=== PATIENT | male | born 1955 | race Caucasian/White ===

== ENCOUNTER 2017-05-16 07:13 | Emergency (ER) | payer BC ==
[2017-05-16 07:31] VITALS: BP 121/73
--- NOTE | 2017-05-16 08:09 | UC ---
Throat Pain/Nasal Herbie HPI - HPI Summary HPI Summary: 61 Y/O male presents with sore throat x 4 days. States fever off and on over several days. Has been exposed to strep throat by granddaughter. Denies nausea, vomiting, or difficulty swallowing. Has been using OTC throat spray, mucinex, and advil with partial relief of symptoms. Past medical history negative for cardiac, endocrine or respiratory illnesses. Medications reviewed at this visit. BP very slightly elevated without history or HTN. - History of Current Complaint Chief Complaint: UCRespiratory Stated Complaint: URI Time Seen by Provider: 05/16/17 07:58 Hx Obtained From: Patient Onset/Duration: Gradual Onset Severity: Mild Pain Intensity: 3 Pain Scale Used: 0-10 Numeric Cough: Productive Associated Signs & Symptoms: Positive: Fever - Allergies/Home Medications Allergies/Adverse Reactions: Allergies Allergy/AdvReac Type Severity Reaction Status Date / Time Penicillins Allergy Unknown Verified 05/16/17 07:24 Reaction Details Home Medications: Home Medications Pseudoephedrine-Guaifenesin [Mucinex D] 2 tab PO Q8HR PRN 05/16/17 [History Confirmed 05/16/17] PMH/Surg Hx/FS Hx/Imm Hx Previously Healthy: Yes - Surgical History Surgical History: Yes Surgery Procedure, Year, and Place: HERNIA REPAIR - Social History Alcohol Use: Weekly Alcohol Amount: 3/WEEK Substance Use Type: None Smoking Status (MU): Never Smoked Tobacco - Immunization History Most Recent Tetanus Shot: 2013 Review of Systems Constitutional: Fever Skin: Negative Eyes: Negative ENT: Sore Throat, Nasal Discharge Respiratory: Cough Cardiovascular: Negative Gastrointestinal: Negative Genitourinary: Negative Motor: Negative Neurovascular: Negative Musculoskeletal: Negative Neurological: Negative Psychological: Negative Is Patient Immunocompromised?: No All Other Systems Reviewed And Are Negative: Yes Physical Exam Triage Information Reviewed: Yes Appearance: Well-Appearing Vital Signs: Initial Vital Signs Temp 99.5 F 05/16/17 07:26 Pulse 92 05/16/17 07:26 Resp 18 05/16/17 07:26 BP 121/73 05/16/17 07:26 Pulse Ox 99 05/16/17 07:26 Vital Signs Reviewed: Yes Eye Exam: Normal Eyes: Positive: Conjunctiva Clear ENT Exam: Normal ENT: Positive: Pharyngeal erythema, Tonsillar exudate Dental Exam: Normal Neck exam: Normal Respiratory: Positive: Chest non-tender, Lungs clear, Normal breath sounds, No respiratory distress Cardiovascular Exam: Normal Cardiovascular: Positive: RRR Abdominal Exam: Normal Bowel Sounds: Positive: Present Musculoskeletal Exam: Normal Neurological Exam: Normal Neurological: Positive: Alert Psychological Exam: Normal Skin Exam: Normal Throat Pain/Nasal Course/Dx - Differential Dx/Diagnosis Differential Diagnosis/HQI/PQRI: Pharyngitis, Tonsillitis Provider Diagnoses: Pharyngitis Discharge - Discharge Plan Condition: Stable Disposition: HOME Referrals: No Primary Care Phys,NOPCP [Primary Care Provider] -
== END 2017-05-16 08:25 | disposition home or self-care (01) ==
LOC: UCEAST 07:13
DX: J02.9 Acute pharyngitis, unspecified (principal); R50.9 Fever, unspecified; Z88.0 Allergy status to penicillin
CPT/HCPCS: 87651; 99201; G0463

== ENCOUNTER 2019-02-06 13:34 | Emergency (ER) | payer BC ==
[2019-02-06 13:50] VITALS: BP 125/85
--- NOTE | 2019-02-06 14:03 | UC ---
Abdominal Pain Male HPI - HPI Summary HPI Summary: Woke up in the middle of the night with abdominal pain and vomiting x2. He feels an ache in his abd. denies blood in vomit, diarrhea, dizziness. Son states pt. is being worked up for some spots on his lungs. - History of Current Complaint Chief Complaint: UCAbdominalPain Stated Complaint: ABD PAIN Time Seen by Provider: 02/06/19 13:52 Hx Obtained From: Patient Onset/Duration: Sudden Onset Pain Intensity: 6 Pain Scale Used: 0-10 Numeric Character: Cramping Aggravating Factor(s): Nothing Alleviating Factor(s): Nothing - Allergies/Home Medications Allergies/Adverse Reactions: Allergies Allergy/AdvReac Type Severity Reaction Status Date / Time Penicillins Allergy Unknown Verified 02/06/19 13:50 Reaction Details PMH/Surg Hx/FS Hx/Imm Hx - Additional Past Medical History Additional PMH: lung issues being worked up by pulm Previously Healthy: Yes - Surgical History Surgical History: Yes Surgery Procedure, Year, and Place: HERNIA REPAIR - Social History Alcohol Use: Occasionally Alcohol Amount: 3/WEEK Substance Use Type: None Smoking Status (MU): Never Smoked Tobacco - Immunization History Most Recent Tetanus Shot: 2013 Review of Systems All Other Systems Reviewed And Are Negative: Yes Constitutional: Negative: Fever, Chills, Fatigue Skin: Negative: Bruising Respiratory: Negative: Shortness Of Breath Cardiovascular: Negative: Palpitations, Chest Pain Gastrointestinal: Positive: Abdominal Pain - upper epigastric, Vomiting - x2 Motor: Negative: Weakness Musculoskeletal: Negative: Myalgia Neurological: Negative: Headache, Weakness Physical Exam Triage Information Reviewed: Yes Appearance: Well-Appearing Vital Signs: Initial Vital Signs Temp 98.9 F 02/06/19 13:42 Pulse 130 02/06/19 13:42 Resp 16 02/06/19 13:42 BP 125/85 02/06/19 13:42 Pulse Ox 98 02/06/19 13:42 Vital Signs Reviewed: Yes Respiratory: Positive: Lungs clear, Normal breath sounds, No accessory muscle use Abdomen Description: Positive: Pulsatile Mass - mid abd w/ mild tenderness Bowel Sounds: Positive: Present Neurological: Positive: Alert, Other: - normal speech, normal gait, normal extremity movement Skin: Negative: Rashes Diagnostics - EKG EKG Comparison: Other - NO OTHER EKGS IN SYSTEM Summary of EKG Findings: REVIEWED W/ DR. CROWELL. LVH STRAIN, TACHYCARDIA. PT DOES NOT HAVE A PACER Abd Pain Male Course/Dx - Course Course Of Treatment: Sudden abd pain w/ 2 episodes of vomiting. Has Tachycardia and on exam pulsatile mass. Although he is a very thin man, and abd aorta can typically be felt on this type of body habitus, it is prudent he gets urgent eval at ED for other sources of abd pain and tachycardia. Of note he is being worked up for ' spots on his lungs' per son's report. Pt is stable and is alert and oriented. Sent via ambulance. - Differential Dx/Clinical Impression Differential Diagnosis/HQI/PQRI: Abdominal Aortic Aneurysm, Appendicitis, Diverticulitis, Pancreatitis, Other Provider Diagnosis: Abdominal pain, Pulsatile abdominal mass Discharge ED - Sign-Out/Discharge Documenting (check all that apply): Patient Departure All imaging exams completed and their final reports reviewed: No Studies - Discharge Plan Condition: Stable Disposition: TRANS HIGHER LVL OF CARE FAC Referrals: Peggy Tipton MD [Primary Care Provider] - Additional Instructions: We are sending you via ambulance to a higher level of care. - Billing Disposition and Condition Condition: STABLE Disposition: Trans Higher Lvl of Care Fac
== END 2019-02-06 14:13 | disposition short-term general hospital (02) ==
LOC: UCEAST 13:34
DX: R10.13 Epigastric pain (principal); R19.00 Intra-abdominal and pelvic swelling, mass and lump, unspecified site; Z88.0 Allergy status to penicillin
CPT/HCPCS: 93005; 99213; G0463

== ENCOUNTER 2019-02-06 14:37 | Emergency (ER) | payer BC ==
[2019-02-06] MEDS ORDERED: NS 0.9% 1000 ML** 1,000 ML IV ONE (14:51)
--- NOTE | 2019-02-06 14:51 | ED ---
Abdominal Pain/Male - HPI Summary HPI Summary: Patient is a 63 y/o M presenting to [facility] via EMS from [facility] with complaints of lower abdominal pain and N/V. He states that he awoke with abdominal pain today, 02/06/19 at around 0300. He reports that he subsequently became nauseous and had two episodes of emesis. He denies diarrhea. Patient states that he only had ana xuan and pepto-bismol today. He notes that he is not nauseous at present. Son notes that the patient is being followed at [facility] for "some black spots on his lung". He states that cancer had been ruled out and this is being treated as an infection. Patient had been prescribed antibiotics and is scheduled for follow up at [facility]. On triage, pain is rated 6/10. Nothing is noted to aggravate/alleviate Sx. Pulse 116, BP 182/93, o2 97 on RA in the room. Home medications and allergies are reviewed. - History of Current Complaint Stated Complaint: ABD PAIN Time Seen by Provider: 02/06/19 14:42 Hx Obtained From: Patient Onset/Duration: Lasting Hours, Still Present Timing: Constant, Lasting Hours Severity Currently: Moderate Pain Scale Used: 0-10 Numeric Location: Other - lower abd Aggravating Factor(s): Nothing Alleviating Factor(s): Nothing Associated Signs And Symptoms: Positive: Nausea, Vomiting. Negative: Fever - on vitals, temp is 98 F, Diarrhea - Allergies/Home Medications Allergies/Adverse Reactions: Allergies Allergy/AdvReac Type Severity Reaction Status Date / Time Penicillins Allergy Unknown Verified 02/06/19 13:50 Reaction Details Home Medications: Home Medications Cyanocobalamin TAB* [Vitamin B12 TAB*] 1,000 mcg PO DAILY 02/06/19 [History Confirmed 02/06/19] PMH/Surg Hx/FS Hx/Imm Hx Endocrine/Hematology History: Denies: Hx Diabetes, Hx Thyroid Disease Cardiovascular History: Denies: Hx Hypertension Respiratory History: Denies: Hx Asthma, Hx Chronic Obstructive Pulmonary Disease (COPD) GI History: Denies: Hx Ulcer - Surgical History Surgery Procedure, Year, and Place: HERNIA REPAIR Infectious Disease History: Denies: Hx Hepatitis, Hx Human Immunodeficiency Virus (HIV) - Family History Known Family History: Positive: Other - cancer - Social History Alcohol Use: Occasionally Alcohol Amount: 3/WEEK Substance Use Type: Reports: None Smoking Status (MU): Never Smoked Tobacco Review of Systems Negative: Fever - on vitals, temp is 98 F Positive: Abdominal Pain, Vomiting, Nausea. Negative: Diarrhea All Other Systems Reviewed And Are Negative: Yes Physical Exam - Summary Physical Exam Summary: Appearance: The patient is well-nourished in no acute distress and in no acute pain. Skin: The skin is warm and dry, and skin color reflects adequate perfusion. HEENT: The head is normocephalic and atraumatic. The pupils are equal and reactive. The conjunctivae are clear and without drainage. Nares are patent and without drainage. Mouth reveals moist mucous membranes, and the throat is without erythema and exudate. The external ears are intact. The ear canals are patent and without drainage. The tympanic membranes are intact. Neck: The neck is supple with full range of motion and non-tender. There are no carotid bruits. There is no neck vein distension. Respiratory: Chest is non-tender. Lungs are clear to auscultation and breath sounds are symmetrical and equal. Cardiovascular: Heart is regular rate and rhythm. There is no murmur or rub auscultated. There is no peripheral edema and pulses are symmetrical and equal. Good radial and femoral pulses bilaterally. Abdomen: Tenderness over the palpable aorta mid abdomen. There are normal bowel sounds heard in all four quadrants and there is no organomegaly palpated. Musculoskeletal: There is no back tenderness noted. Extremities are non-tender with full range of motion. There is good capillary refill. There is no peripheral edema or calf tenderness elicited. Neurological: Patient is alert and oriented to person, place and time. The patient has symmetrical motor strength in all four extremities. Cranial nerves are grossly intact. Deep tendon reflexes are symmetrical and equal in all four extremities. Psychiatric: The patient has an appropriate affect and does not exhibit any anxiety or depression. Triage Information Reviewed: Yes Vital Signs Reviewed: Yes Procedures - Sedation Patient Received Moderate/Deep Sedation with Procedure: No Diagnostics - Laboratory Result Diagrams: 02/06/19 15:11 02/06/19 15:11 Lab Statement: Any lab studies that have been ordered have been reviewed, and results considered in the medical decision making process. - CT CHEST/ABD/PEL CTA CT Interpretation Completed By: Radiologist Summary of CT Findings: CTA CHEST IMPRESSION: #. Large LEFT pleural effusion and large LEFT diaphragmatic hernia with proportional. atelectasis most marked at the basilar segments of the LEFT lower lobe. Nonspecific. opacification of the LEFT lower lobe airways which may represent mucus impaction or. potentially tumor. #. Negative for thoracic lymphadenopathy. #. Negative for aneurysm or dissection of the thoracic aorta. #. No evidence for pulmonary embolism. CTA ABD/PEL IMPRESSION: #. Negative for aneurysm or dissection of the abdominal aorta. #. Perforation in the central aspect of the LEFT hemidiaphragm measuring up to 3.3 cm AP. by 3.4 cm transverse with herniation of the majority of the small bowel as well as the. splenic flexure of the colon into the thorax. Suggestion of mural thickening involving the. proximal jejunum suspicious for potential ischemia. #.Top normal diameter of the duodenum measuring up to 2.6 cm diameter favoring a component. of partial small bowel obstruction secondary to the diaphragmatic hernia. #. Negative for ascites or free air. THIS REPORT WAS REVIEWED BY DR. BERNAL. Re-Evaluation - Re-Evaluation First Eval Re-Evaluation Time: 17:22 Comment: Results of CTA and the consult with surgery were discussed with patient and family. They understand the need for transfer and agree to it. Abdominal Pain Male Course/Dx - Course Course Of Treatment: Mr. Santos had the sudden onset of abdominal pain about 3: 00 this morning waking him up. He tried taking some Pepto-Bismol but vomited it back up and went back to bed. He vomited a second time and has had continued pain since with no exacerbating or relieving factors. He denies any chest pain or shortness of breath. He denies any trauma. He was nontoxic in appearance here but quite thin and cachectic. His vitals were good aside from a very mild tachycardia. He is very thin and his aorta is easily palpated and is tender in that area. Labs were obtained and when a BUN and creatinine were found to be normal a CTA was obtained. The CTA revealed that he has a perforation of his left diaphragm with the majority of the small bowel extruded as well as the splenic flexure of the colon. There is evidence that there might be some ischemia. I spoke with Dr. Gorman who informed me that thoracic surgery would need to be involved and the patient will need to be transferred. I spoke with Dr. Fall at [facility] who accepted transfer the patient. The patient was given fluids and Zosyn here in the emergency department. - Diagnoses Provider Diagnoses: Perforation of diaphragm, Partial small bowel obstruction - Provider Notifications Discussed Care Of Patient With: Miriam Gorman Time Discussed With Above Provider: 17:18 Instructed by Provider To: Other - 1718 - Patient's case was discussed with Dr. Shun Gorman, surgery. Dr. Gorman recommends transfer of patient to [facility] for higher level of care. 1733 - Patient's case was discussed with Dr. Lazaro Culp MD, from [facility]. Dr. Culp accepts the patient for transfer from [facility] to [facility] ICU. - Critical Care Time Critical Care Time: 30-74 min - 30 MINUTES CCT Discharge ED - Sign-Out/Discharge Documenting (check all that apply): Patient Departure - transfer - Discharge Plan Condition: Stable Disposition: TRANS HIGHER LVL OF CARE FAC Referrals: Peggy Tipton MD [Primary Care Provider] - - Billing Disposition and Condition Condition: STABLE Disposition: Trans Higher Lvl of Care Fac - Attestation Statements Document Initiated by Jodi: Yes Documenting Scribe: AIDEE KELLY Provider For Whom Jodi is Documenting (Include Credential): BRAULIO BERNAL MD Scribe Attestation: AIDEE Bartlett scribed for BRAULIO BERNAL MD on 02/06/19 at 1750. Scribe Documentation Reviewed: Yes Provider Attestation: The documentation as recorded by the AIDEE aggarwal accurately reflects the service I personally performed and the decisions made by me, BRAULIO BERNAL MD Status of Scribe Document: Viewed
[2019-02-06] MEDS ORDERED: HYDROmorphone INJ1* 1 MG/ML SYRINGE IV SLOW PU ONE (15:10)
[2019-02-06] MEDS ORDERED: Ondansetron INJ* 2 MG/ML VIAL IV ONE (15:10)
[2019-02-06 15:24] LABS: ABS Lymphocytes 0.4 10^3/ul (1.0-4.8); ABS Monocytes 0.3 10^3/ul (0-0.8); ABS Neutrophils 11.2 10^3/ul (1.5-7.7); Hematocrit 45 % (42-52); Hemoglobin 14.7 g/dL (14.0-18.0); Mean Corpuscular HGB Conc 33 g/dL (31-36); Mean Corpuscular Hemoglobin 30 pg (27-31); Mean Corpuscular Volume 92 fL (80-94); Mean Platelet Volume 6.8 fL (7.4-10.4); Platelet Count 362 10^3/uL (150-450); Red Blood Count 4.88 10^6 /uL (4.18-5.48); Red Cell Distribution Width 13 % (10-15); White Blood Count 11.8 10^3/uL (3.5-10.8)
--- OUTSIDE RECORDS SUMMARY | 2019-02-06 15:24 | XMS REPORT | Summary of Care ---
:1955 Author Organization [facility] Address [address] [place] [address] Care Team Providers Name Role Phone Peggy Tipton MD Primary Care Provider Reason for Visit Reason Comments Follow Up to weight loss and spot on lung Encounter Details Date Type Department Care Team Description 01/03/2019 Office Visit Fang Tipton, Weight loss (Primary Dx); Practice MD Peggy Cavitary lesion of lung [address] [place] [address] [place] [address] [phone] Allergies Active Allergy Reactions Severity Noted Date Comments Penicillins Unknown Reaction 05/29/2017 documented as of this encounter (statuses as of 01/03/2019) Medications Medication Sig Dispensed Refills Start Date End Date Status Cyanocobalamin Take 1,000 0 Active (VITAMIN B 12 PO) mcg by mouth DAILY. levofloxacin Take 1 Tab 10 Tab 0 11/02/2018 01/03/2019 Discontinued (LEVAQUIN) 500 MG by mouth Oral Tab DAILY 0700 on Empty Stomach. documented as of this encounter (statuses as of 01/03/2019) Active Problems Problem Noted Date Lung mass 09/30/2018 Vitamin B12 deficiency 01/19/2018 documented as of this encounter (statuses as of 01/03/2019) Immunizations Name Administration Dates Next Due Influenza (IM) Preservative Free 02/16/2018 documented as of this encounter Social History Tobacco Use Types Packs/Day Years Used Date Never Smoker Smokeless Tobacco: Never Used Alcohol Use Drinks/Week oz/Week Comments Yes 4 Cans of beer 4.0 weekends Sex Assigned at Date Recorded Not on file Job Start Date Occupation Industry Not on file Not on file Not on file Travel History Travel Start Travel End No recent travel history available. documented as of this encounter Last Filed Vital Signs Vital Sign Reading Time Taken Comments Blood Pressure 116/68 01/03/2019 2:04 PM EDT Pulse 80 01/03/2019 2:04 PM EDT Temperature 37.3 01/03/2019 2:04 PM EDT C (99.1 F) Respiratory Rate - - Oxygen Saturation 100% 01/03/2019 2:04 PM EDT Inhaled Oxygen Concentration - - Weight 56.5 kg (124 lb 8 oz) 01/03/2019 2:04 PM EDT Height 177.8 cm (5' 10") 01/03/2019 2:04 PM EDT Body Mass Index 17.86 01/03/2019 2:04 PM EDT documented in this encounter Patient Instructions Patient InstructionsPeggy Tipton MD - 01/03/2019 2:00 PM EDT1. Follow up in 07/2019 for physical and as needed documented in this encounter Progress Notes Peggy Tipton MD - 01/03/2019 2:00 PM EDT PATIENT: Toan Lopez : 1955 DATE OF SERVICE: 01/03/2019 Patient comes follow up weight loss Stable since last visit, gained 1 lb. Had extensive evaluation for cavity in the R lung Negative for malignancy, TB, other infections Has f/u with pulmonary in 02/2019 Past Medical History: Diagnosis Date Hernia of abdominal cavity Outpatient Medications as of 01/03/2019 Medication Sig Dispense Refill Cyanocobalamin (VITAMIN B 12 PO) Take 1,000 mcg by mouth DAILY. No current facility-administered medications on file as of 01/03/2019. BP 116/68 (BP Location: Left arm, Patient Position: Sitting) | Pulse 80 | Temp 99.1 F (37.3 C) | Ht 5' 10" (1.778 m) | Wt 124 lb 8 oz (56.5 kg) | SpO2 100% | BMI 17.86 kg/m General appearance: alert, well appearing, and in no distress. Chest: clear to auscultation, no wheezes, rales or rhonchi, symmetric air entry. CVS exam: normal rate, regular rhythm, normal S1, S2, no murmurs, rubs, clicks or gallops. ICD-9-CM ICD-10-CM 1. Weight loss Improved, stable 783.21 R63.4 2. Cavitary lesion of lung Follow with pulmonary as scheduled 518.89 J98.4 Patient Instructions 1. Follow up in 07/2019 for physical and as needed Author: Peggy Tipton MD 01/03/2019 14:23 documented in this encounter Plan of Treatment Date Type Specialty Care Team Description 02/10/2019 Office Visit Pulmonary Pradip Chin MD [address] [address] [phone] 08/02/2019 Office Visit Family Practice Peggy Tipton MD [address] [place] [address] [phone] Health Maintenance Due Date Last Done Comments ZOSTER IMMUNIZATION SERIES (1 of 09/01/2007 2) INFLUENZA VACCINE (#1) 2018 02/16/2018 DEPRESSION SCREENING 10/06/2019 10/05/2018 LIPID DISORDER SCREENING 07/30/2022 07/30/2017 COLONOSCOPY SCREENING 07/31/2027 07/30/2017 HEPATITIS C SCREENING Completed 02/18/2018 HIV SCREENING Completed 08/17/2018 HPV IMMUNIZATION SERIES Aged Out No longer eligible based on patient's age to complete this topic MENINGOCOCCAL VACCINE IMM Aged Out No longer eligible based on patient's age to complete this topic PNEUMOCOCCAL 0-64 YRS Aged Out No longer eligible based on patient's age to complete this topic documented as of this encounter Results Not on filedocumented in this encounter Visit Diagnoses Diagnosis Weight loss - Primary Loss of weight Cavitary lesion of lung Other diseases of lung, not elsewhere classified documented in this encounter (Home) [address] [place] [address] documented as of this encounter Advance Directives Type Date Recorded 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
[2019-02-06 15:29] LABS: INR 1.09 (0.82-1.09)
[2019-02-06 15:35] LABS: Albumin/Globulin Ratio 1.1 (1-3); BUN/Creatinine Ratio 13.6 (8-20); C Reactive Protein 134.02 mg/L (<8.01); Calcium 9.4 mg/dL (8.6-10.3); EGFR African American 88.8 (>60); EGFR Non-African American 73.4 (>60); Globulin 3.6 g/dL (2-4); Potassium 4.3 mmol/L (3.5-5.0); Total Bilirubin 0.5 mg/dL (0.2-1.0); Total Protein 7.6 g/dL (6.4-8.9)
[2019-02-06] MEDS ORDERED: Iohexol 350* (CONTRAST) 500 ML MDV IV ONE (15:51)
[2019-02-06] MEDS ORDERED: Ciprofloxacin 400MG IVPREMIX(* 400 MG/200 ML BAG IVPB ONE (17:54)
[2019-02-06] MEDS ORDERED: metroNIDAZOLE IV 500 MG/100ML* 500 MG/100 ML BAG IVPB ONE (17:55)
[2019-02-06 19:01] VITALS: BP 149/87
== END 2019-02-06 19:01 | disposition short-term general hospital (02) ==
LOC: ED 14:37
DX: Z88.0 Allergy status to penicillin (principal); S27.808A Other injury of diaphragm, initial encounter; K56.600 Partial intestinal obstruction, unspecified as to cause; J90 Pleural effusion, not elsewhere classified; K44.9 Diaphragmatic hernia without obstruction or gangrene; J98.11 Atelectasis; X58.XXXA Exposure to other specified factors, initial encounter
CPT/HCPCS: 36415; 71275; 74174; 80053; 85025; 85610; 86140; 96361; 96374; 96375; 99285; J0744; J1170; J2405; Q9967